=== PATIENT | female | born 1945 | race Caucasian/White ===

== ENCOUNTER 2019-06-11 10:06 | Inpatient (IN) | payer OTHER ==
[~2019-06-11] VITALS: Ht 157.5 cm; Wt 75.6 kg
[2019-06-11] MEDS ORDERED: DILTIAZEM HCL 25 MG/5 ML VIAL IV ONE (10:45)
[2019-06-11 11:24] LABS: Alanine Aminotransferase 44 U/L (13-56); Albumin 4.1 g/dL (3.4-5.0); Anion Gap 6 (5-15); Aspartate Aminotransferase 35 U/L (15-37); BUN/Creatinine Ratio 26.3; Blood Urea Nitrogen 15 mg/dL (7-18); Carbon Dioxide 26 mmol/L (21-32); Chloride 104 mmol/L (98-107); GFR African American 134 mL/min; GFR Non-African American 111 mL/min; Glucose 108 mg/dL (74-106); Potassium 3.9 mmol/L (3.5-5.1); Sodium 136 mmol/L (136-145)
[2019-06-11 11:29] LABS: Alkaline Phosphatase 58 U/L (45-117); Bilirubin, Total 0.4 mg/dL (0.2-1.0); Total Protein 7.8 g/dL (6.4-8.2)
[2019-06-11] MEDS ORDERED: DILTIAZEM 125mg/125ml BAG KIT 125 ML IV ONE (12:15)
[2019-06-11 12:18] LABS: Basophils # (auto) 0.1 uL; Basophils % (auto) 0.8 % (0.0-2.0); Eosinophils # (auto) 0 uL; Eosinophils % (auto) 0.6 % (0.0-7.0); Hematocrit 39.1 % (36.0-46.0); Hemoglobin 13.5 g/dL (12.2-16.2); Lymphocytes # (auto) 1.1 uL; Lymphocytes % (auto) 15.4 % (10.0-50.0); Mean Corpuscular Hemoglobin 32.3 pg (28.0-32.0); Mean Corpuscular Hgb Conc. 34.6 g/dL (32.0-36.0); Mean Corpuscular Volume 93.2 fL (80.0-100.0); Monocytes # (auto) 0.8 uL; Monocytes % (auto) 10.8 % (0.0-12.0); Neutrophils # (auto) 5.3 uL; Neutrophils % (auto) 72.4 % (37.0-80.0); Nucleated Red Blood Cells % 0.1 %; Platelet Count (auto) 317 10^3/uL (140-450); Red Cell Distribution Width 13.1 % (11.8-14.3); White Blood Cell 7.3 10^3/uL (4.4-10.8)
[2019-06-11] MEDS ORDERED: ACETAMINOPHEN 500 MG TAB PO PRN (13:15)
[2019-06-11] MEDS ORDERED: AMIODARONE HCL 150 MG in D5W 5% 100 ML IV ONE (13:15)
[2019-06-11] MEDS ORDERED: NITROGLYCERIN 0.4 MG SL TAB SL PRN (13:15)
[2019-06-11] MEDS ORDERED: HYDROcodone-ACET 5/325MG TAB PO PRN (13:15)
[2019-06-11] MEDS ORDERED: ASPirin 81 mg TAB PO ONE (13:15)
[2019-06-11] MEDS ORDERED: MORPHINE SULF INJ 2 MG/ML SYRINGE 1ML IV PRN ×2 (13:15)
[2019-06-11] MEDS ORDERED: ONDANSETRON HCL 4 MG/2 ML VIAL IV PRN (13:15)
[2019-06-11] MEDS ORDERED: AMIODARONE HCL 900 MG in DEXTROSE 500 ML IV SCH ×2 (13:16→19:16)
[2019-06-11] MEDS ORDERED: POTASSIUM CHL 20 Meq TABLET PO ONE (17:30)
--- NOTE | 2019-06-11 20:20 | NUR ---
Telemetry admit from [facility]EL[facility] admitted to Telemetry unit after SBAR received. Patient oriented to Summer Wade, primary RN, unit, room, bed, and unit policies regarding patient care and visiting hours. Patient now on continuous telemetry monitoring, tele box # 29 and telemetry reading on arrival to unit is Sinus bradycardia 56. Patient placed on bedside oxygen, weighed by bedscale and encouraged to call if they need something. All questions and concerns addressed, patient verbalized understanding. Note:
[2019-06-11] MEDS ORDERED: METO-169 PO (20:45)
[2019-06-11] MEDS ORDERED: AMLO5TAB15 PO (20:45)
[2019-06-11] MEDS ORDERED: SERT-377 PO (20:45)
[2019-06-11 22:00] VITALS: BP 151/82
[2019-06-11] MEDS: METOPROLOL TARTRATE 50 MG TAB PO SCH (22:00)
[2019-06-11] MEDS ORDERED: ATORVASTATIN 20 MG TAB PO SCH (22:00)
[2019-06-12 05:42] VITALS: BP 139/63
--- NOTE | 2019-06-12 07:15 | NUR ---
Opening Shift Note Assumed care of patient, awake and alert. No S/S of distress/SOB or pain. Instructed on POC and to call for assist PRN, will continue to monitor for changes Q1hr and PRN.
[2019-06-12 07:21] LABS: Basophils # (auto) 0 uL; Basophils % (auto) 0.2 % (0.0-2.0); Eosinophils # (auto) 0.1 uL; Eosinophils % (auto) 1.5 % (0.0-7.0); Hemoglobin 13.1 g/dL (12.2-16.2); Lymphocytes % (auto) 14.1 % (10.0-50.0); Mean Corpuscular Hemoglobin 32.9 pg (28.0-32.0); Mean Corpuscular Hgb Conc. 34.4 g/dL (32.0-36.0); Mean Corpuscular Volume 95.9 fL (80.0-100.0); Monocytes # (auto) 0.8 uL; Monocytes % (auto) 10.9 % (0.0-12.0); Neutrophils # (auto) 5.2 uL; Neutrophils % (auto) 73.3 % (37.0-80.0); Platelet Count (auto) 254 10^3/uL (140-450); Red Blood Cells 3.97 10^6/uL (4.0-5.20); White Blood Cell 7.1 10^3/uL (4.4-10.8)
[2019-06-12 07:40] LABS: BUN/Creatinine Ratio 30.9; INR 0.93 (0.9-1.15); Partial Thromboplastin Time 26.8 sec (23.64-32.05); Potassium 4.3 mmol/L (3.5-5.1)
[2019-06-12 09:07] VITALS: BP 145/69
[2019-06-12] MEDS: METOPROLOL TARTRATE 50 MG TAB PO SCH (09:45)
[2019-06-12] MEDS ORDERED: LISINOPRIL 10 MG TAB PO SCH (10:00)
[2019-06-12] MEDS ORDERED: ASPirin 81 mg TAB PO SCH (10:00)
[2019-06-12] MEDS ORDERED: FAMOTIDINE 20 MG TAB PO SCH (10:00)
--- NOTE | 2019-06-12 11:35 | NUR ---
Dr. Antonio Mejia in to see patient as hospitalist.
[2019-06-12 12:30] VITALS: BP 145/74
--- NOTE | 2019-06-12 12:55 | NUR ---
Patient states she wants to be discharged today not in AM as Dr. Mejia had planned. Dr. Mejia informed. He states if patient wants to leave today she must sign out AMA.
--- NOTE | 2019-06-12 13:22 | NUR ---
Patient informed that Dr. Mejia wants her to stay one more day. Patient states there is no reason for her to stay and states she is willing sign out AMA. AMA form signed. IV left forearm removed with tip intact. Pressure dressing to site. POM taken from Pharmacy and given to patient.
--- NOTE | 2019-06-12 13:25 | NUR ---
AMA Note [facility] SINGH states they want to leave the hospital Against Medical Advice (AMA). Patient encouraged to stay for further treatment/stabilization. Antonio Mejia MD notified of patient's wishes. Patient advised of the risks and benefits of leaving AMA. Patient verbalized understanding. Patient encouraged to return to the ER if symptoms do not improve or worsen.
[2019-06-12 13:29] VITALS: BP 145/69
== END 2019-06-12 13:20 | disposition left against medical advice (07) | DRG 310 ==
LOC: ER 10:06 → TELE 10:07 → TELE-CENTR 20:23
PROVIDERS: ADMIT Nurse Practitioner Acute Care; ATTEND Nurse Practitioner Acute Care
DX: I48.91 Unspecified atrial fibrillation (principal); E78.00 Pure hypercholesterolemia, unspecified; E78.5 Hyperlipidemia, unspecified; G47.33 Obstructive sleep apnea (adult) (pediatric); I10 Essential (primary) hypertension; Z53.21 Procedure and treatment not carried out due to patient leaving prior to being seen by health care provider; Z90.710 Acquired absence of both cervix and uterus; Z79.899 Other long term (current) drug therapy
CPT/HCPCS: 36415; 71045; 80048; 80053; 83735; 83880; 84443; 84484; 85025; 85610; 85730; 86141; 93005; 93306; 94761; 96365; 99291; G0378; J7060

== ENCOUNTER → 2020-02-26 | Emergency (ER) | payer OTHER ==
[~2020-02-26] VITALS: Ht 157.5 cm; Wt 71.7 kg
[~2020-02-26] MED LIST: AMLO5TAB15 PO; METO-169 PO; SERT-377 PO; dilTIAZem 25 MG/5 ML VIAL IV ONE
[2020-02-26 04:23] LABS: Urine Bacteria NONE SEEN /hpf (None Seen); Urine Blood Negative /uL (Negative); Urine Hyaline Cast FEW /lpf (0 - 2); Urine Mucus FEW (None Seen); Urine Specific Gravity 1.015 (1.001-1.035); Urine WBC <1 /hpf (0 - 5)
[2020-02-26 04:24] LABS: Basophils # (auto) 0 10 ^3/uL (0-0.2); Basophils % (auto) 0.3 % (0.0-2.0); Eosinophils # (auto) 0.1 10 ^3/uL (0-0.8); Eosinophils % (auto) 1.7 % (0.0-7.0); Hematocrit 34.9 % (36.0-46.0); Hemoglobin 12.1 g/dL (12.2-16.2); Lymphocytes # (auto) 1.6 10 ^3/uL (0.4-5.4); Lymphocytes % (auto) 18.5 % (10.0-50.0); Mean Corpuscular Hemoglobin 33.1 pg (28.0-32.0); Mean Corpuscular Hgb Conc. 34.8 g/dL (32.0-36.0); Mean Corpuscular Volume 95.3 fL (80.0-100.0); Monocytes # (auto) 0.8 10 ^3/uL (0-1.3); Monocytes % (auto) 9.6 % (0.0-12.0); Neutrophils % (auto) 69.9 % (37.0-80.0); Nucleated Red Blood Cells % 0.1 %; Platelet Count (auto) 323 10^3/uL (140-450); Red Blood Cells 3.66 10^6/uL (4.0-5.20); Red Cell Distribution Width 13.8 % (11.8-14.3); White Blood Cell 8.6 10^3/uL (4.4-10.8)
[2020-02-26 04:34] LABS: Lipase 111 U/L (73-393); Magnesium 2.3 mg/dL (1.6-2.6); Potassium 3.9 mmol/L (3.5-5.1)
[2020-02-26 04:38] LABS: Albumin 3.7 g/dL (3.4-5.0); BUN/Creatinine Ratio 26.2; Calcium 8.7 mg/dL (8.5-10.1); INR 1.01 (0.9-1.15)
[2020-02-26 04:40] LABS: Bilirubin, Total 0.3 mg/dL (0.2-1.0); Total Protein 6.8 g/dL (6.4-8.2)
[2020-02-26 04:42] LABS: Amylase 29 U/L (25-115)
[2020-02-26 10:20] VITALS: BP 139/81
== END | disposition left against medical advice (07) ==
LOC: ER 03:34
DX: I48.91 Unspecified atrial fibrillation (principal); R07.89 Other chest pain; K80.20 Calculus of gallbladder without cholecystitis without obstruction; K44.9 Diaphragmatic hernia without obstruction or gangrene; K76.0 Fatty (change of) liver, not elsewhere classified; E03.9 Hypothyroidism, unspecified; R74.8 Abnormal levels of other serum enzymes
CPT/HCPCS: 36415; 71045; 74176; 80053; 81001; 82150; 83605; 83690; 83735; 84443; 84484; 85025; 85610; 85730; 87040; 93005; 96374; 96376

== ENCOUNTER → 2020-02-27 | Emergency (ER) | payer OTHER ==
[~2020-02-27] VITALS: Ht 157.5 cm; Wt 71.7 kg
[~2020-02-27] MED LIST changes: +FUROSEMIDE 40 MG/4 ML VIAL IV ONE; +HYDROcodone-ACET 10/325MG TAB PO ONE; +KETOROLAC TROMETH 30 MG/ML 1ML VIAL IV ONE; +METOCLOPRAMIDE HCL 5MG/ml INJ 2ml VIAL IV ONE; +SPIRONOLACTONE 25 MG TAB PO ONE
[2020-02-27 04:14] LABS: Basophils # (auto) 0 10 ^3/uL (0-0.2); Basophils % (auto) 0.3 % (0.0-2.0); Eosinophils # (auto) 0.3 10 ^3/uL (0-0.8); Eosinophils % (auto) 3.5 % (0.0-7.0); Hematocrit 36.5 % (36.0-46.0); Hemoglobin 12.4 g/dL (12.2-16.2); Lymphocytes # (auto) 1.3 10 ^3/uL (0.4-5.4); Mean Corpuscular Hgb Conc. 34.1 g/dL (32.0-36.0); Mean Corpuscular Volume 96.8 fL (80.0-100.0); Monocytes # (auto) 0.8 10 ^3/uL (0-1.3); Monocytes % (auto) 8.4 % (0.0-12.0); Neutrophils # (auto) 7.3 10 ^3/uL (1.6-8.6); Neutrophils % (auto) 74.8 % (37.0-80.0); Nucleated Red Blood Cells % 0.1 %; Platelet Count (auto) 314 10^3/uL (140-450); Red Blood Cells 3.77 10^6/uL (4.0-5.20); White Blood Cell 9.8 10^3/uL (4.4-10.8)
[2020-02-27 04:29] LABS: INR 1.03 (0.9-1.15); Partial Thromboplastin Time 26.4 sec (23.64-32.05)
[2020-02-27 04:34] LABS: Albumin 3.9 g/dL (3.4-5.0); Amylase 35 U/L (25-115); Anion Gap 9 (5-15); BUN/Creatinine Ratio 20.3; Blood Urea Nitrogen 13 mg/dL (7-18); Calcium 8.2 mg/dL (8.5-10.1); Carbon Dioxide 25 mmol/L (21-32); Chloride 97 mmol/L (98-107); GFR African American 117 mL/min; GFR Non-African American 96 mL/min; Glucose 101 mg/dL (74-106); Lipase 160 U/L (73-393); Magnesium 2.2 mg/dL (1.6-2.6); Potassium 3.7 mmol/L (3.5-5.1); Sodium 131 mmol/L (136-145)
[2020-02-27 04:40] LABS: Alanine Aminotransferase 68 U/L (13-56); Alkaline Phosphatase 70 U/L (45-117); Aspartate Aminotransferase 42 U/L (15-37); Bilirubin, Total 0.6 mg/dL (0.2-1.0); Total Protein 7.4 g/dL (6.4-8.2)
[2020-02-27 09:08] VITALS: BP 119/85
== END | disposition home or self-care (01) ==
LOC: ER 01:55
DX: I48.91 Unspecified atrial fibrillation (principal); K80.50 Calculus of bile duct without cholangitis or cholecystitis without obstruction; K80.20 Calculus of gallbladder without cholecystitis without obstruction; R09.89 Other specified symptoms and signs involving the circulatory and respiratory systems; E78.5 Hyperlipidemia, unspecified; I10 Essential (primary) hypertension; Z90.710 Acquired absence of both cervix and uterus; Z88.6 Allergy status to analgesic agent
CPT/HCPCS: 36415; 80053; 82150; 83690; 83735; 84484; 85025; 85610; 85730; 93005; 96374; 96375; 99284; J1885; J1940; J2765

== ENCOUNTER → 2020-03-30 | Emergency (ER) | payer OTHER ==
[~2020-03-30] VITALS: Ht 157.5 cm; Wt 71.7 kg
[~2020-03-30] MED LIST changes: -FUROSEMIDE 40 MG/4 ML VIAL IV ONE; -HYDROcodone-ACET 10/325MG TAB PO ONE; -KETOROLAC TROMETH 30 MG/ML 1ML VIAL IV ONE; -METOCLOPRAMIDE HCL 5MG/ml INJ 2ml VIAL IV ONE; +MORPHINE SULF INJ 2 MG/ML SYRINGE 1ML IV PRN; +NITROGLYCERIN 0.4 MG SL TAB SL PRN; -SPIRONOLACTONE 25 MG TAB PO ONE; +cefTRIAXone 1GM/50ML D5W 50 ML IV ONE; -dilTIAZem 25 MG/5 ML VIAL IV ONE
[2020-03-30 07:21] LABS: Basophils # (auto) 0 10 ^3/uL (0-0.2); Basophils % (auto) 0.6 % (0.0-2.0); Eosinophils # (auto) 0.4 10 ^3/uL (0-0.8); Eosinophils % (auto) 4.4 % (0.0-7.0); Hematocrit 39.5 % (36.0-46.0); Hemoglobin 13.2 g/dL (12.2-16.2); Lymphocytes # (auto) 1.1 10 ^3/uL (0.4-5.4); Lymphocytes % (auto) 12.3 % (10.0-50.0); Mean Corpuscular Hemoglobin 32.2 pg (28.0-32.0); Mean Corpuscular Hgb Conc. 33.5 g/dL (32.0-36.0); Mean Corpuscular Volume 96.4 fL (80.0-100.0); Monocytes # (auto) 0.8 10 ^3/uL (0-1.3); Neutrophils # (auto) 6.3 10 ^3/uL (1.6-8.6); Neutrophils % (auto) 73.7 % (37.0-80.0); Platelet Count (auto) 279 10^3/uL (140-450); Red Cell Distribution Width 13.6 % (11.8-14.3); White Blood Cell 8.6 10^3/uL (4.4-10.8)
[2020-03-30 07:35] LABS: Albumin 3.9 g/dL (3.4-5.0); Calcium 9.2 mg/dL (8.5-10.1); Potassium 4.6 mmol/L (3.5-5.1)
[2020-03-30 07:40] LABS: BUN/Creatinine Ratio 16.4; Bilirubin, Total 0.5 mg/dL (0.2-1.0); Total Protein 7.3 g/dL (6.4-8.2)
[2020-03-30 08:04] LABS: Urine Bacteria NONE SEEN /hpf (None Seen); Urine Blood Negative /uL (Negative); Urine Specific Gravity 1.005 (1.001-1.035); Urine WBC <1 /hpf (0 - 5)
[2020-03-30 11:30] VITALS: BP 143/86
== END | disposition home or self-care (01) ==
LOC: ER 06:11 → UNDOADMIN 06:12 → TELE 06:12
DX: K80.20 Calculus of gallbladder without cholecystitis without obstruction (principal); K44.9 Diaphragmatic hernia without obstruction or gangrene; K85.90 Acute pancreatitis without necrosis or infection, unspecified; R94.5 Abnormal results of liver function studies; I48.91 Unspecified atrial fibrillation; E78.5 Hyperlipidemia, unspecified; I10 Essential (primary) hypertension; Z90.710 Acquired absence of both cervix and uterus; Z90.89 Acquired absence of other organs; Z88.6 Allergy status to analgesic agent
CPT/HCPCS: 36415; 74176; 80053; 81001; 82150; 83605; 83690; 85025; 87040; 93005; 96365; 99285; J0696

== ENCOUNTER 2022-04-28 11:00 | Emergency (ER) | payer OTHER ==
[~2022-04-28] VITALS: Ht 152.4 cm; Wt 74.1 kg
[~2022-04-28 11:00] MED LIST changes: +AMLO-489 PO; -AMLO5TAB15 PO; -METO-169 PO; +METO-289 PO; -MORPHINE SULF INJ 2 MG/ML SYRINGE 1ML IV PRN; -NITROGLYCERIN 0.4 MG SL TAB SL PRN; -cefTRIAXone 1GM/50ML D5W 50 ML IV ONE
[2022-04-28 11:09] VITALS: BP 131/58
[2022-04-28 11:45] LABS: Basophils # (auto) 0 10 ^3/uL (0-0.2); Basophils % (auto) 0.5 % (0.0-2.0); Eosinophils # (auto) 0.4 10 ^3/uL (0-0.8); Eosinophils % (auto) 5.7 % (0.0-7.0); Hematocrit 36.4 % (36.0-46.0); Hemoglobin 12.5 g/dL (12.2-16.2); Lymphocytes # (auto) 1.5 10 ^3/uL (0.4-5.4); Lymphocytes % (auto) 20.3 % (10.0-50.0); Mean Corpuscular Hemoglobin 32.7 pg (28.0-32.0); Mean Corpuscular Hgb Conc. 34.4 g/dL (32.0-36.0); Mean Corpuscular Volume 94.9 fL (80.0-100.0); Monocytes # (auto) 0.7 10 ^3/uL (0-1.3); Monocytes % (auto) 9.1 % (0.0-12.0); Neutrophils # (auto) 4.7 10 ^3/uL (1.6-8.6); Neutrophils % (auto) 64.4 % (37.0-80.0); Red Blood Cells 3.84 10^6/uL (4.0-5.20); Red Cell Distribution Width 12.9 % (11.8-14.3); White Blood Cell 7.3 10^3/uL (4.4-10.8)
[2022-04-28 12:01] LABS: Albumin 4.2 g/dL (3.4-5.0); Calcium 9.1 mg/dL (8.5-10.1); Potassium 4.5 mmol/L (3.5-5.1)
[2022-04-28 12:04] LABS: BUN/Creatinine Ratio 16.9; Bilirubin, Total 0.7 mg/dL (0.2-1.0); Total Protein 7.4 g/dL (6.4-8.2)
== END 2022-04-28 17:19 | disposition left against medical advice (07) ==
LOC: ER 11:00
DX: R00.2 Palpitations (principal); Z20.822 Contact with and (suspected) exposure to COVID-19
CPT/HCPCS: 36415; 71046; 80053; 83735; 84484; 85025; 93005

== ENCOUNTER 2023-05-20 06:41 | Emergency (ER) | payer OTHER ==
[~2023-05-20] VITALS: Ht 154.9 cm; Wt 72.0 kg
[~2023-05-20 06:41] MED LIST changes: -AMLO-489 PO; +AMLO1TAB22 PO
[2023-05-20 07:33] LABS: Basophils # (auto) 0 10 ^3/uL (0-0.2); Basophils % (auto) 0.5 % (0.0-2.0); Eosinophils # (auto) 0.4 10 ^3/uL (0-0.8); Eosinophils % (auto) 6.2 % (0.0-7.0); Hemoglobin 11.7 g/dL (12.2-16.2); Lymphocytes # (auto) 1.2 10 ^3/uL (0.4-5.4); Lymphocytes % (auto) 19.5 % (10.0-50.0); Mean Corpuscular Hemoglobin 33.1 pg (28.0-32.0); Mean Corpuscular Hgb Conc. 34.6 g/dL (32.0-36.0); Mean Corpuscular Volume 95.7 fL (80.0-100.0); Monocytes # (auto) 0.7 10 ^3/uL (0-1.3); Neutrophils % (auto) 62.8 % (37.0-80.0); Nucleated Red Blood Cells % 0.1 %; Red Blood Cells 3.55 10^6/uL (4.0-5.20); Red Cell Distribution Width 13.6 % (11.8-14.3); White Blood Cell 6.4 10^3/uL (4.4-10.8)
[2023-05-20 07:48] LABS: INR 1.1 (0.9-1.15); Partial Thromboplastin Time 32.3 SEC (24.5-34.5); Prothrombin Time 11.5 sec (9.3-11.8)
[2023-05-20 07:56] LABS: Alanine Aminotransferase 91 U/L (7-40); Albumin 4.4 g/dL (3.2-4.8); Alkaline Phosphatase 63 U/L (46-116); Anion Gap 9.8 (5-15); Aspartate Aminotransferase 95 U/L (13-40); BUN/Creatinine Ratio 15.4 (10.0-20.0); Blood Urea Nitrogen 10 mg/dL (9-23); Calcium 9.3 mg/dL (8.5-10.1); Carbon Dioxide 23.2 mmol/L (20-30); Chloride 100 mmol/L (98-107); Glucose 104 mg/dL (74-106); Magnesium 1.8 mg/dL (1.6-2.6); Potassium 3.8 mmol/L (3.5-5.1); Sodium 133 mmol/L (136-145)
[2023-05-20 07:57] LABS: Bilirubin, Total 0.7 mg/dL (0.2-1.0); Total Protein 6.9 g/dL (5.7-8.2)
[2023-05-20] MEDS ORDERED: dilTIAZem HCL 60 MG TAB PO ONE ×2 (09:15→09:30)
[2023-05-20 09:29] VITALS: BP 167/98; RESP 16; TEMP 98; O2SAT 95
[2023-05-20 09:34] VITALS: PULSE 120
== END 2023-05-20 11:33 | disposition left against medical advice (07) ==
LOC: ER 06:41
DX: R00.2 Palpitations (principal); I48.20 Chronic atrial fibrillation, unspecified; R06.00 Dyspnea, unspecified; J44.9 Chronic obstructive pulmonary disease, unspecified; E78.5 Hyperlipidemia, unspecified; I10 Essential (primary) hypertension; Z86.73 Personal history of transient ischemic attack (TIA), and cerebral infarction without residual deficits; Z90.710 Acquired absence of both cervix and uterus; Z88.6 Allergy status to analgesic agent
CPT/HCPCS: 36415; 71045; 80053; 83735; 83880; 84484; 85025; 85610; 85730; 93005